=== PATIENT | male | born 1970 | race Caucasian/White ===

== ENCOUNTER 2021-08-25 04:04 | Emergency (ER) | payer OTHER ==
[~2021-08-25] VITALS: Ht 172.7 cm; Wt 78.0 kg
[2021-08-25] MEDS ORDERED: ZOLP5TAB2 PO (05:11)
[2021-08-25 05:18] VITALS: BP 131/72
== END 2021-08-25 05:21 | disposition home or self-care (01) ==
LOC: ER 04:11
DX: G47.00 Insomnia, unspecified (principal); Z79.899 Other long term (current) drug therapy